=== PATIENT | male | born 1955 | race Two or more races ===

== ENCOUNTER 2017-05-11 00:15 | Emergency (ER) | payer OTHER ==
[~2017-05-11] VITALS: Ht 160 cm; Wt 84.8 kg
[~2017-05-11 00:15] MED LIST: NORCO 5-325 TA1 EACH ORAL; UNOBMED
[2017-05-11] MEDS ORDERED: DiphenhydrAMINE 50mg/ml Inj IVP ONE (00:45)
[2017-05-11] MEDS ORDERED: Ketorolac 30mg Inj IV ONE (00:45)
[2017-05-11] MEDS ORDERED: Metoclopramide 10mg/2ml Inj IVP ONE (00:45)
[2017-05-11 01:08] LABS: APPEARANCE,URINE CLEAR; KETONES,URINE NEGATIVE (NEGATIVE); NITRITE,URINE NEGATIVE (NEGATIVE); PH,URINE 6 (4.5-8.0); PROTEIN,URINE 1+ (NEGATIVE); UROBILINOGEN,URINE NORMAL MG/DL (0.0-1.0)
[2017-05-11 01:21] LABS: LEUKOCYTE ESTERASE ,URINE 1+ (NEGATIVE)
[2017-05-11 01:22] LABS: BACTERIA,URINE FEW /HPF; SQUAMOUS EPITHELIAL CELL,UR FEW /LPF (NONE/OCC)
[2017-05-11 01:46] VITALS: BP 127/73
--- NOTE | 2017-05-11 04:00 | Emergency Room Report ---
History of Present Illness General Chief Complaint: Headache Source: Patient Present Illness HPI Patient is a 61-year-old male presented after increased headache. Patient gradual onset of symptoms. He reports having some increased left-sided flank pain. Patient had up and vomiting. He denies any neck pain. Allergies: Coded Allergies: No Known Allergies (Unverified , 01/07/16) Patient History Past Medical History: see triage record Reviewed Nursing Documentation: PMH: Agreed, PSxH: Agreed Nursing Documentation-PMH Past Medical History: No Stated History Review of Systems All Other Systems: negative except mentioned in HPI Physical Exam Vital Signs Date Time Temp Pulse Resp B/P (MAP) Pulse Ox O2 Delivery O2 Flow Rate FiO2 05/11/17 00:18 97.3 60 18 132/83 98 Sp02 EP Interpretation: reviewed, normal General Appearance: normal inspection, well appearing, no apparent distress, alert, GCS 15 Head: atraumatic ENT: normal ENT inspection, hearing grossly normal, normal voice Neck: normal inspection, full range of motion, supple, no bony tend Respiratory: normal inspection, lungs clear, normal breath sounds, no respiratory distress, no retraction, no wheezing Cardiovascular #1: regular rate, rhythm, no edema Gastrointestinal: normal inspection, normal bowel sounds, non tender, soft, no guarding, no hernia Genitourinary: no CVA tenderness Musculoskeletal: normal inspection, back normal, normal range of motion Neurologic: normal inspection, alert, oriented x3, responsive, chip frier III-XII nml as tested, motor strength/tone normal, speech normal Psychiatric: normal inspection, judgement/insight normal, mood/affect normal Skin: normal inspection, normal color, no rash Medical Decision Making Diagnostic Impression: Primary Impression: Headache ER Course Patient presented for headache..Differential diagnoses included but was not limited to skull fracture, subarachnoid hemorrhage, meningitis, aneurysm, mass lesion, intracranial hemorrhage.Because of complexity of patient's case laboratory testing and imaging studies were ordered.CT imaging No evidence of acute hemorrhage or CVA. the patient was given Toradol for headache. The patient is advised to follow up with primary care doctor in 1-2 days. Patient is advised to return if any worsening condition or if any changes in status that are concerning. Last Vital Signs Date Time Temp Pulse Resp B/P (MAP) Pulse Ox O2 Delivery O2 Flow Rate FiO2 05/11/17 01:46 97.3 72 18 127/73 98 Status: improved Disposition: HOME, SELF-CARE Condition: Stable Referrals: [facility] (PCP) Patient Instructions: General Headache Without Cause Nagi Moctezuma May 11, 2017 04:00
--- NOTE | 2017-05-11 09:52 | Diagnostic Imaging Report ---
Indication: PAIN headache Technique: spiral acquisitions obtained through the brain. Angled axial and coronal 5 x 5 mm slices were reconstructed. No IV contrast utilized. Radiation dose was minimized using automated exposure control Total dose length product 1390 mGycm. CTDIvol(s) 70 mGy Comparison: none FINDINGS: No acute hemorrhage or edema. No mass effect or midline shift. There is age-related enlargement of the ventricles and extra axial CSF spaces. There is periventricular deep white matter ischemic change. Normal salazar-white differentiation. Visualized orbits are unremarkable. There is ethmoid sinus disease. Visualized sinuses are unremarkable. Intact calvarium. IMPRESSION: Chronic and age-related changes. Negative for acute intracranial bleed or mass effect Sinus disease This agrees with the preliminary interpretation provided overnight by [facility]. The CT scanner at [facility] is accredited by the [employer] and the scans are performed using protocols designed to limit radiation exposure to as low as reasonably achievable to attain images of sufficient resolution adequate for diagnostic evaluation
== END 2017-05-11 01:45 | disposition home or self-care (01) ==
LOC: EMR 00:31
DX: R51 Headache (principal); R11.10 Vomiting, unspecified; J32.9 Chronic sinusitis, unspecified
CPT/HCPCS: 70450; 81003; 96372; 99283; J1885; J2765

== ENCOUNTER 2017-08-10 04:25 | Emergency (ER) | payer OTHER ==
[~2017-08-10] VITALS: Ht 165.1 cm; Wt 79.8 kg
[2017-08-10 04:35] VITALS: BP 130/79
--- NOTE | 2017-08-10 04:51 | Emergency Room Report ---
History of Present Illness General Chief Complaint: Back Pain-No Injury Source: Patient Present Illness HPI Patient presents with complaints of right lower back pain Reports that it started over the weekend He does not recall exactly what initiated the pain he reports that he has back problems and has intermittent pain Denies any fall or trauma Denies any saddle paresthesia Denies any focal weakness Denies any headache or visual changes Allergies: Coded Allergies: No Known Allergies (Unverified , 01/07/16) Patient History Past Medical History: see triage record Pertinent Family History: none Reviewed Nursing Documentation: PMH: Agreed, PSxH: Agreed Nursing Documentation-PMH Past Medical History: No History, Except For Review of Systems All Other Systems: negative except mentioned in HPI Physical Exam Vital Signs Date Time Temp Pulse Resp B/P (MAP) Pulse Ox O2 Delivery O2 Flow Rate FiO2 08/10/17 04:27 97.3 71 16 134/80 96 Room Air 97.3 Sp02 EP Interpretation: reviewed, normal General Appearance: well appearing, no apparent distress Head: normocephalic, atraumatic Eyes: bilateral eye PERRL, bilateral eye EOMI ENT: normal pharynx, no angioedema Neck: full range of motion, supple Respiratory: lungs clear Cardiovascular #1: regular rate, rhythm Gastrointestinal: non tender, soft Musculoskeletal: other - Mild tenderness over the right posterior superior iliac crest no midline step-off patient ambulatory without any deficit Neurologic: alert, oriented x3, responsive, motor strength/tone normal Skin: no rash, warm/dry Lymphatic: no adenopathy Medical Decision Making Diagnostic Impression: Primary Impression: Back pain ER Course I felt that given the patient's presentation multiple differentials are considered Including but not limited to neurological, neurosurgical, infectious pathology Patient has had imaging in the past he reported there was no new acute trauma I did want to provide the patient with IM injection along with oral medication Patient did however drive here as well And refusing any IM injection of Toradol Asking regarding outpatient followup patient reports that he has no physician and not able to get any prescriptions however on the CURES review the patient has had several medications including tramadol just recently with 90 pills dispensed patient was provided a copy of this report and encouraged to follow closely with primary physician or the prescribing physician Last Vital Signs Date Time Temp Pulse Resp B/P (MAP) Pulse Ox O2 Delivery O2 Flow Rate FiO2 08/10/17 04:27 97.3 71 16 134/80 96 Room Air 97.3 Status: improved Disposition: HOME, SELF-CARE Condition: Improved Scripts Ibuprofen* (MOTRIN*) 600 Mg Tablet 600 MG ORAL Q8H Y for For Pain, #20 TAB 0 Refills Prov: HOLA BLACKWOOD D.O. 08/10/17 Referrals: [facility] (PCP) Additional Instructions: Patient is provided with the discharge instructions notified to follow up with primary doctor in the next 2-3 days otherwise return to the er with any worsening symptoms. Please note that this report is being documented using [employer] technology. This can lead to erroneous entry secondary to incorrect interpretation by the dictating instrument. HOLA BLACKWOOD D.O. Aug 10, 2017 04:51
[2017-08-10] MEDS ORDERED: Methocarbamol 750mg tab ORAL ONE (05:00)
[2017-08-10] MEDS ORDERED: IBUPROFEN600 MG ORAL (05:06)
[2017-08-10 05:10] VITALS: BP 128/89
[2017-08-10 05:15] VITALS: BP 128/89
== END 2017-08-10 05:15 | disposition home or self-care (01) ==
LOC: EMR 04:43
DX: M54.5 Low back pain (principal)
CPT/HCPCS: 99283